=== PATIENT | male | born 1995 | race Hispanic/Latino ===

== ENCOUNTER 2022-02-25 12:05 | Emergency (ER) | payer SELFPAY ==
[2022-02-25 12:40] LABS: Hematocrit 43.5 % (39.6-49.0); Lymphocytes % 22.7 % (15.3-44.8); MPV 8.2 fL (7.6-11.3); RBC Red Blood Cell Count 4.83 M/uL (4.33-5.43)
--- NOTE | 2022-02-25 12:53 | RAD REPORT ---
EXAM DESCRIPTION: CT - Head C Spine Cap Sheba Ingram - 02/25/2022 12:40 pm CLINICAL HISTORY: Trauma, head and neck injury. Chest, abdomen and pelvis pain. human vs tree COMPARISON: No comparisons TECHNIQUE: CT head without contrast. CT cervical spine without contrast with coronal and sagittal reformatted images. CT chest, abdomen and pelvis with IV contrast (approximately 100 mL nonionic IV contrast) with kaminski l and sagittal reformatted images of the spine. All CT scans are performed using dose optimization technique as appropriate and may include automated exposure control or mA/KV adjustment according to patient size. FINDINGS: CT HEAD WITHOUT CONTRAST: No intracranial hemorrhage, hydrocephalus or extra-axial fluid collection. No areas of brain edema o r midline shift. The paranasal sinuses and mastoids are essentially clear. The calvarium is intact. CT CERVICAL SPINE WITHOUT CONTRAST: No fracture or subluxation. The prevertebral soft tissues are normal in thickness. CT CHEST, ABDOMEN, PELVIS WITH CONTRAST: The lungs are clear.No pneumothorax or pericardial/pleural fluid. No evidence of intra-abdominal visceral injury, free fluid or free air. No concerning pelvic findings. No fractures. IMPRESSION: Negative for acute traumatic findings.
[2022-02-25 12:58] LABS: Albumin 4.1 g/dL (3.4-5.0); Bilirubin Total 0.4 mg/dL (0.2-1.0); Potassium 3.4 mmol/L (3.5-5.1); Protein, Total 7.7 g/dL (6.4-8.2)
--- NOTE | 2022-02-25 13:59 | ER ---
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 it is reported that the patient had +LOC for 2-3 minutes, but did not fall to the ground as the patient was strapped into a harness. Coronavirus screen: At this time, the client does not indicate any symptoms associated with coronavirus-19. Ebola Screen: No symptoms or risks identified at this time. Mechanism of Injury: The problem was sustained outdoors, resulted from falling object. Initial Sepsis Screen: Does the patient meet any 2 criteria? No. Patient's initial sepsis screen is negative. Does the patient have a suspected source of infection? No. Patient's initial sepsis screen is negative. Risk Assessment: Do you want to hurt yourself or someone else? Patient reports no desire to harm self or others. Onset of symptoms was February 25, 2022 at 11:45. 12:11 Method Of Arrival: Wheelchair ap3 12:11 Acuity: YARIEL 2 ap3 12:17 Care prior to arrival: None. Trauma event details: Injury occurred in the [address], Injury occurred: outdoors Injury occurred: February 25, 2022 Injury occurred at: 11:45. Triage Assessment: 12:16 General: Appears uncomfortable, Behavior is quiet. Pain: Complains of pain in scalp ap3 Pain began suddenly, 30 min ago. Neuro: Level of Consciousness is awake, alert, Oriented to person, place, time, Speech is normal, Reports headache. Cardiovascular: Patient's skin is warm and dry. Respiratory: Airway is patent Respiratory effort is even, unlabored. Trauma Activation: Alert Physician: ED Physician; Name: ; Notified At: 12:12; Arrived At: 12:12 Physician: General Surgeon; Name: ; Notified At: 12:12; Arrived At: Physician: Radiology; Name: ; Notified At: 12:12; Arrived At: 12:13 Physician: Respiratory; Name: ; Notified At: 12:12; Arrived At: Physician: Lab; Name: ; Notified At: 12:12; Arrived At: Historical: - Allergies: 12:16 No Known Allergies; ap3 - Home Meds: 12:16 None [Active]; ap3 - PMHx: 12:16 None; ap3 - Immunization history:: Client reports having NOT received the Covid vaccine. - Social history:: Smoking status: Patient denies any tobacco usage or history of. Screenin:20 Nutritional screening: No deficits noted. [facility] 12:28 Abuse screen: Denies threats or abuse. Denies injuries from another. Tuberculosis [facility] screening: No symptoms or risk factors identified. 12:29 Fall Risk IV access (20 points). [facility] Primary Survey: 12:18 NO uncontrolled hemorrhage observed. A: The client is alert. No supplemental oxygen in ap3 use on arrival. Breathing/Chest: Spontaneous respiratory effort, equal unlabored respirations, breath sounds clear bilaterally, regular pattern, symmetrical chest rise and fall. Respiratory pattern: regular. Circulation: No external hemorrhage present. Regular and strong central pulse, skin warm/dry/normal color. Disability Client is alert. Exposure/Environment: A warming method has been applied: A warm blanket has been provided to the patient. 12:28 Reassessment Alertness and Airway: Awake and alert. The airway is patent. Breathing: 6 Spontaneous respiratory effort, equal unlabored respirations, breath sounds clear bilaterally, regular pattern with symmetrical chest rise and fall. Respiratory effort Spontaneous Unlabored Circulation: No external hemorrhage noted. Regular and strong central pulse, skin warm/dry/normal color. Secondary Survey: 12:27 Musculoskeletal: Capillary refill < 3 seconds, Swelling absent. [facility] Assessment: 12:25 General: Appears in no apparent distress. Behavior is calm, cooperative. Pain: 6 Complains of pain in left side of forehead, left temporal area and left congregation Pain radiates to left side of head Pain currently is 8 out of 10 on a pain scale. Quality of pain is described as throbbing, Pain began suddenly, Is continuous, Aggravated by repositioning, Noted to be quiet/stoic. Neuro: Page Agitation-Sedation Scale (RASS): 0 - Alert and Calm Level of Consciousness is awake, alert, obeys commands, Oriented to person, place, time, situation, Resident Services Director are equal bilaterally Moves all extremities. Gait is steady, Speech is normal, Facial symmetry appears normal, Pupils are PERRLA, Reports headache in left. Injury Description: Abrasion sustained to left side of head Head injury sustained to neck. 13:20 Reassessment: No changes from previously documented assessment. Patient and/or family jh6 updated on plan of care and expected duration. Pain level reassessed. PT ALERT NO CHANGE IN STATUS. RESULTS ALL NEGATIVE. 14:21 Reassessment: Patient and/or family updated on plan of care and expected duration. Pain jh6 level reassessed. Patient is alert, oriented x 3, equal unlabored respirations, skin warm/dry/pink. General: PT given pain meds and provider spoke with pt and boss about results and d/c orders. . Pain: Complains of pain in face Pain currently is 6 out of 10 on a pain scale. Vital Signs: 12:11 BP 151 / 86; Pulse 74; Resp 18; Temp 98.8; Pulse Ox 100% ; Weight 63.5 kg; Height 5 ft. ap3 8 in. (172.72 cm); 14:24 BP 140 / 84; Pulse 69; Resp 17; Pulse Ox 100% ; Pain 6/10; jh6 14:24 BP 146 / 84; Pulse 76; Resp 17; Pulse Ox 100% ; Pain 6/10; jh6 12:11 Body Mass Index 21.29 (63.50 kg, 172.72 cm) ap3 Manish Coma Score: 12:11 Eye Response: spontaneous(4). Verbal Response: oriented(5). Motor Response: obeys ap3 commands(6). Total: 15. 12:19 Eye Response: spontaneous(4). Verbal Response: oriented(5). Motor Response: obeys ap3 commands(6). Total: 15. Trauma Score (Adult): 12:19 Eye Response: spontaneous(1); Verbal Response: oriented(1); Motor Response: obeys ap3 commands(2); Systolic BP: > 89 mm Hg(4); Respiratory Rate: 10 to 29 per min(4); Manish Score: 15; Trauma Score: 12 ED Course: 12:06 Patient arrived in ED. am2 12:08 Eric hCarles PA is PHCP. [facility] 12:08 Markell Moe MD is Attending Physician. [facility] 12:16 Triage completed. ap3 12:19 Patient maintains SpO2 saturation greater than 95% on room air. ap3 12:19 Arm band placed on right wrist. ap3 12:20 Placed in gown. Bed in low position. Call light in reach. Side rails up X 1. jh6 12:25 Frannie Martinez, RN is Primary Nurse. jh6 12:26 Initial lab(s) drawn, by va, sent to lab. Inserted saline lock: 20 gauge in left 5 antecubital area, using aseptic technique. Blood collected. 12:27 Initial lab(s) drawn, by laborer drying department, sent to lab. jh6 12:28 No provider procedures requiring assistance completed. jh6 12:29 Thermoregulation: warm blanket given to patient. jh6 12:42 CT Traumagram (Head C Spine CAP W Con) In Process Unspecified. EDMS 12:[address] back [address]. jh6 14:34 IV discontinued, intact, bleeding controlled, No redness/swelling at site. Pressure 6 dressing applied. Administered Medications: 14:18 Drug: morphine 4 mg Route: IVP; Infused Over: 4 mins; Site: left antecubital; 6 14:33 Follow up: Response: Pain is decreased 6 14:18 Drug: Zofran (Ondansetron) 4 mg Route: IVP; Site: left antecubital; 6 14:33 Follow up: Response: Pain is decreased [facility] Outcome: 13:59 Discharge ordered by . [facility] 14:33 Discharged to home ambulatory. jh6 14:33 Condition: good 14:33 Discharge instructions given to patient, friend, Instructed on discharge instructions, Demonstrated understanding of instructions, wound care. 14:36 Patient left the ED. 6 Signatures: Dispatcher [employer] EDMS Eric Charles PA PA jmm Martinez, Maria 5 Noemi Still am2 Noemi Gallo, RN RN ap3 Frannie Martinez, JOHNATHON RN 6
--- NOTE | 2022-02-25 13:59 | EDPHYS ---
Physician Documentation [facility] Name: Serafin Pizano Age: 27 yrs Sex: Male : 1995 Arrival Date: 02/25/2022 Time: 12:06 Bed 16 Private MD: ED Physician Markell Moe HPI: 02/25 12:16 This 27 yrs old Male presents to ER via Wheelchair with complaints of Head jmm Injury-Adult. 12:16 The patient or guardian reports injury, pain. Onset: The symptoms/episode jmm began/occurred acutely, just prior to arrival. Associated signs and symptoms: Loss of consciousness: This patient experience a loss of consciousness, for 2 minute(s). This is a 27 year old male with no chronic medical conditions that presents to the ED with complaints of left sided headache. 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 Coworkers confirm positive LOC. Patient also complains of chest pain, upper back pain, and neck pain. . Historical: - Allergies: 12:16 No Known Allergies; ap3 - Home Meds: 12:16 None [Active]; ap3 - PMHx: 12:16 None; ap3 - Immunization history:: Client reports having NOT received the Covid vaccine. - Social history:: Smoking status: Patient denies any tobacco usage or history of. ROS: 12:16 Constitutional: Negative for fever, chills, and weight loss, Cardiovascular: Negative jmm for chest pain, palpitations, and edema, Respiratory: Negative for shortness of breath, cough, wheezing, and pleuritic chest pain. 12:16 Neck: Positive for pain with movement. 12:16 Back: Positive for pain with movement. 12:16 All other systems are negative. Exam: 12:16 Constitutional: This is a well developed, well nourished patient who is awake, alert, jmm and in no acute distress. Head/Face: atraumatic. Eyes: EOMI, no conjunctival erythema appreciated ENT: Moist Mucus Membranes Neck: Trachea midline, Supple Chest/axilla: Normal chest wall appearance and motion. Cardiovascular: Regular rate and rhythm. No edema appreciated Respiratory: Normal respirations, no respiratory distress appreciated Abdomen/GI: Non distended, soft Back: Normal ROM Skin: General appearance color normal MS/ Extremity: Moves all extremities, no obvious deformities appreciated, no edema noted to the lower extremities Neuro: Awake and alert Psych: Behavior is normal, Mood is normal, Patient is cooperative and pleasant 12:16 Head/face: Exam is negative for damon signs, raccoon eyes, Noted is tenderness, that is mild, of the left temporal area. Vital Signs: 12:11 BP 151 / 86; Pulse 74; Resp 18; Temp 98.8; Pulse Ox 100% ; Weight 63.5 kg; Height 5 ft. ap3 8 in. (172.72 cm); 14:24 BP 140 / 84; Pulse 69; Resp 17; Pulse Ox 100% ; Pain 6/10; jh6 14:24 BP 146 / 84; Pulse 76; Resp 17; Pulse Ox 100% ; Pain 6/10; jh6 12:11 Body Mass Index 21.29 (63.50 kg, 172.72 cm) ap3 Manish Coma Score: 12:11 Eye Response: spontaneous(4). Verbal Response: oriented(5). Motor Response: obeys ap3 commands(6). Total: 15. 12:19 Eye Response: spontaneous(4). Verbal Response: oriented(5). Motor Response: obeys ap3 commands(6). Total: 15. Trauma Score (Adult): 12:19 Eye Response: spontaneous(1); Verbal Response: oriented(1); Motor Response: obeys ap3 commands(2); Systolic BP: > 89 mm Hg(4); Respiratory Rate: 10 to 29 per min(4); [place] Score: 15; Trauma Score: 12 MDM: 12:16 Patient medically screened. [facility] 13:55 Data reviewed: vital signs, nurses notes. Counseling: I had a detailed discussion with massimo the patient and/or guardian regarding: the historical points, exam findings, and any diagnostic results supporting the discharge/admit diagnosis, radiology results, the need for outpatient follow up. 14:17 ED course: Imaging studies are negative. Patient advised to follow up with pcp and jmm otherwise given strict return precautions. patient understood and agrees with the plan of care . 02/25 12:19 Order name: CBC with Diff; Complete Time: 13:16 [facility] 02/25 12:19 Order name: CMP; Complete Time: 13:16 [facility] 02/25 12:18 Order name: Saline Lock [facility] 02/25 12:18 Order name: CT Traumagram (Head C Spine CAP W Con); Complete Time: 13:16 [facility] Administered Medications: 14:18 Drug: morphine 4 mg Route: IVP; Infused Over: 4 mins; Site: left antecubital; [facility] 14:33 Follow up: Response: Pain is decreased [facility] 14:18 Drug: Zofran (Ondansetron) 4 mg Route: IVP; Site: left antecubital; [facility] 14:33 Follow up: Response: Pain is decreased [facility] Disposition Summary: 02/25/22 13:59 Discharge Ordered Location: Home [facility] Condition: Stable [facility] Diagnosis - Unspecified injury of head, initial encounter [facility] Followup: [facility] - With: Private Physician - When: 2 - 3 days - Reason: Recheck today's complaints, Continuance of care, Re-evaluation by your physician Discharge Instructions: - Discharge Summary Sheet [facility] - Head Injury, Adult [facility] Forms: - Medication Reconciliation Form [facility] - Thank You Letter [facility] - Antibiotic Education [facility] - Prescription Opioid Use [facility] Addendum: 02/26/2022 23:18 Co-signature as Attending Physician, Markell Moe MD. r n Signatures: Dispatcher [employer] EDMS Eric Charles PA PA [facility] Markell Moe MD MD rn Prokisch, Amanda, RN RN ap3 Frannie Martinez RN RN jh6
[2022-02-25] MEDS ORDERED: MORPHINE 4 MG/ML SYR ONE (14:23)
[2022-02-25] MEDS ORDERED: ONDANSETRON 4 MG/2 ML VIAL ONE (14:23)
[2022-02-25 14:58] VITALS: TEMP 98.8; O2SAT 100
[2022-02-25 15:01] VITALS: BP 146/84
== END 2022-02-25 14:36 | disposition home or self-care (01) ==
LOC: ER 12:05
DX: S09.90XA Unspecified injury of head, initial encounter (principal); M54.9 Dorsalgia, unspecified; M54.2 Cervicalgia; W22.8XXA Striking against or struck by other objects, initial encounter; Y93.H2 Activity, gardening and landscaping
CPT/HCPCS: 36415; 70450; 71260; 72125; 74177; 80053; 85025; 96374; 96375; 99285; J2405; Q9967